=== PATIENT | male | born 1940 | race Caucasian/White ===

== ENCOUNTER 2021-11-24 11:56 | Inpatient (IN) | payer MEDICARE ==
[~2021-11-24] VITALS: Ht 182.9 cm; Wt 53.1 kg
[2021-11-24] MEDS ORDERED: normal saline 1000ml 1,000 ML IV ONE (13:45)
[2021-11-24] MEDS ORDERED: normal saline 1000ML IV soln IVB ONE (13:45)
[2021-11-24 13:48] LABS: BASOPHILS # (AUTO) 0.1 X10'3 (0-0.2); BASOPHILS % (AUTO) 0.8 % (0-1); EOSINOPHILS # (AUTO) 0.4 X10'3 (0-0.9); EOSINOPHILS % (AUTO) 4.2 % (0-6); HEMATOCRIT 40.1 % (42.0-52.0); HEMOGLOBIN 13.2 g/dl (14.0-17.9); LYMPHOCYTES # (AUTO) 0.8 X10'3 (1.1-4.8); LYMPHOCYTES % (AUTO) 8.3 % (21-51); MEAN CORPUSCULAR HEMOGLOBIN 30.1 PG (27.0-31.0); MEAN CORPUSCULAR HGB CONC 32.9 g/dL (33.0-36.5); MEAN CORPUSCULAR VOLUME 91.6 FL (78-98); MEAN PLATELET VOLUME 10.7 FL (7.4-10.4); MONOCYTES # (AUTO) 0.6 X10'3 (0-0.9); MONOCYTES % (AUTO) 6.8 % (2-12); NEUTROPHILS # (AUTO) 7.5 X10'3 (1.8-7.7); NEUTROPHILS % (AUTO) 79.9 % (42-75); PLATELET COUNT 165 X10'3 (140-440); RED BLOOD COUNT 4.38 X10'6 (4.70-6.10); RED CELL DISTRIBUTION WIDTH 16.6 % (11.5-14.5); WHITE BLOOD COUNT 9.4 X10'3 (4.5-11.0)
[2021-11-24] MEDS ORDERED: hyDRALAzine 10mg tablet PO SCH (13:50)
[2021-11-24] MEDS ORDERED: hyDRALAzine 10mg tablet PO ONE (13:50)
[2021-11-24 13:57] LABS: ALANINE AMINOTRANSFERASE 18 U/L (12-78); ALBUMIN 3.4 G/DL (3.4-5.0); ALBUMIN/GLOBULIN RATIO 0.9 (1.1-1.5); ALKALINE PHOSPHATASE 103 IU/L (46-116); ANION GAP 18 (8-16); ASPARTATE AMINO TRANSFERASE 19 U/L (10-37); BILIRUBIN,TOTAL 0.9 MG/DL (0.1-1.0); BLOOD UREA NITROGEN 30 MG/DL (7-18); BUN/CREATININE RATIO 8.6 (5.4-32.0); CALCIUM 9.3 MG/DL (8.5-10.1); CHLORIDE 101 MMOL/L (99-107); GLUCOSE 136 MG/DL (70-104); MAGNESIUM 2.2 MG/DL (1.5-2.4); POTASSIUM 3.7 MMOL/L (3.5-5.1); SODIUM 142 MMOL/L (135-145); TOTAL CARBON DIOXIDE 23.4 MMOL/L (24-32); eGFR 17 ML/MIN
[2021-11-24] MEDS: metoprolol tartrate 1mg/ml inj IV SCH ×3 (14:03→14:15)
[2021-11-24 14:23] LABS: CREATINE KINASE 132 U/L (39-308)
[2021-11-24] MEDS ORDERED: ondansetron 4mg rapidly disintigrating tab PO PRN (14:35)
[2021-11-24] MEDS ORDERED: magnesium Cl slow-release 64mg tablet PO PRN (14:35)
[2021-11-24] MEDS ORDERED: ondansetron/PF 4mg/2ml inj IV PRN (14:35)
[2021-11-24] MEDS ORDERED: magnesium 2GM in 50ml NS 50 ML IV PRN (14:35)
[2021-11-24] MEDS ORDERED: PERFLUTREN PROTEIN-A MICROSPHR (Optison) 0.22 MG/ML 3ML VIAL IV ONE (14:35)
[2021-11-24] MEDS ORDERED: acetaminophen 325mg tablet PO PRN (14:35)
[2021-11-24] MEDS ORDERED: potassium CL 10mEq/100ml bag 100 ML IV PRN (14:35)
[2021-11-24] MEDS ORDERED: magnesium 4gm in 100ml NS 100 ML IV PRN (14:35)
[2021-11-24] MEDS: normal saline 1000ml 1,000 ML IV SCH (14:35)
[2021-11-24] MEDS ORDERED: potassium Cl 20 mEq SR tablet PO PRN ×2 (14:35)
[2021-11-24 14:50] LABS: CLARITY,URINE CLEAR (Clear); GLUCOSE, URINE NEGATIVE (Neg); KETONES,URINE 15 mg/dl (Neg); LEUKOCYTE ESTERASE ,URINE NEGATIVE (Neg); NITRITES, URINE NEGATIVE (Neg); OCCULT BLOOD,URINE SMALL (Neg); PH,URINE 5.5 (4.8-8.0); PROTEIN,URINE 100 mg/dl (Neg); UROBILINOGEN,URINE 0.2 E.U/dL (0.2-1.0)
[2021-11-24 14:55] LABS: COLOR,URINE DARK YELLOW (Yellow); UA COLLECTION TYPE NON-SPECIFIED
[2021-11-24 14:56] LABS: BACTERIA,URINE FEW /HPF (Neg); COARSE GRANULAR CAST 0-3 /LPF (NEGATIVE); MUCUS STRANDS NONE SEEN /LPF (Neg); RBC,URINE 0-2 /HPF (0-2); SQUAMOUS EPITHELIAL CELL,UR FEW /LPF (FEW); WBC,URINE 0-4 /HPF (0-4)
[2021-11-24] MEDS ORDERED: ROSU40TA PO (16:09)
[2021-11-24] MEDS ORDERED: METO-384 PO (16:09)
[2021-11-24] MEDS: K and/or MAG REPLACEMENT MC SCH (19:06)
[2021-11-24] MEDS: docusate sod 100mg capsule PO SCH (20:00)
[2021-11-25] MEDS: normal saline 1000ml 1,000 ML IV SCH ×3 (00:35→20:35)
--- NOTE | 2021-11-25 01:12 | NUR ---
PT REFUSING VS AND ALL INTERACTIONS. PT REFUSES TO BE PUT ON A HOSPITAL BED. I EXPLAINED THAT HE WOULD BE MORE COMFORTABLE AND HE STATED THAT HE JUST WANTED TO BE LEFT ALONE. CHARGE AMANDA NOTIFIED.
--- NOTE | 2021-11-25 06:27 | NUR ---
Report received from LOUISE Rivera. Patient resting quietly, appears to be asleep; even chest rise and fall.
--- NOTE | 2021-11-25 07:35 | NUR ---
Patient resting quietly; given warm blanket. Patient denies needs at this time.
[2021-11-25] MEDS: K and/or MAG REPLACEMENT MC SCH ×2 (08:00→20:13)
[2021-11-25] MEDS: docusate sod 100mg capsule PO SCH ×2 (08:00→20:13)
[2021-11-25 08:02] LABS: BASOPHILS # (AUTO) 0.1 X10'3 (0-0.2); BASOPHILS % (AUTO) 0.9 % (0-1); EOSINOPHILS # (AUTO) 0.6 X10'3 (0-0.9); HEMATOCRIT 33.7 % (42.0-52.0); HEMOGLOBIN 11.3 g/dl (14.0-17.9); LYMPHOCYTES # (AUTO) 1.2 X10'3 (1.1-4.8); LYMPHOCYTES % (AUTO) 13.8 % (21-51); MEAN CORPUSCULAR HEMOGLOBIN 30.7 PG (27.0-31.0); MEAN CORPUSCULAR HGB CONC 33.4 g/dL (33.0-36.5); MEAN CORPUSCULAR VOLUME 91.9 FL (78-98); MEAN PLATELET VOLUME 11.1 FL (7.4-10.4); MONOCYTES # (AUTO) 0.6 X10'3 (0-0.9); NEUTROPHILS % (AUTO) 71.3 % (42-75); PLATELET COUNT 129 X10'3 (140-440); RED BLOOD COUNT 3.67 X10'6 (4.70-6.10); RED CELL DISTRIBUTION WIDTH 17.2 % (11.5-14.5); WHITE BLOOD COUNT 8.4 X10'3 (4.5-11.0)
[2021-11-25] MEDS: atorvastatin 20mg tablet PO SCH (08:19)
--- NOTE | 2021-11-25 08:20 | NUR ---
Patient given breakfast tray.
[2021-11-25] MEDS: metoprolol succinate 25mg (24-HOUR) SR. Tablet PO SCH (08:21)
[2021-11-25 08:53] LABS: ALBUMIN 2.7 G/DL (3.4-5.0); ANION GAP 14 (8-16); BLOOD UREA NITROGEN 34 MG/DL (7-18); BUN/CREATININE RATIO 10.9 (5.4-32.0); CALCIUM 8.5 MG/DL (8.5-10.1); CHLORIDE 107 MMOL/L (99-107); CREATININE 3.13 MG/DL (0.60-1.10); GLUCOSE 122 MG/DL (70-104); MAGNESIUM 2.3 MG/DL (1.5-2.4); POTASSIUM 3.2 MMOL/L (3.5-5.1); SODIUM 145 MMOL/L (135-145); TOTAL CARBON DIOXIDE 23.6 MMOL/L (24-32); eGFR 19 ML/MIN
--- NOTE | 2021-11-25 18:44 | NUR ---
assumed care of patient. patient eating dinner, no complaints of pain aox4. replaced PIV 20g RFA in 1 attempt. will reconnect to ivf and ctm
--- NOTE | 2021-11-25 22:47 | NUR ---
REPORT TO NURSE RIDDLE ON [facility]
--- NOTE | 2021-11-25 23:00 | NUR ---
received patient from ER ,transferred to bed safely. pt on room air , denies pain ,all belongings labeled, awaiting for security to pick patient wallet
[2021-11-25 23:32] VITALS: BP 168/82
[2021-11-26 02:00] VITALS: BP 158/78
[2021-11-26 05:38] LABS: BASOPHILS % (AUTO) 0.5 % (0-1); EOSINOPHILS # (AUTO) 0.4 X10'3 (0-0.9); EOSINOPHILS % (AUTO) 4.7 % (0-6); HEMATOCRIT 32.4 % (42.0-52.0); HEMOGLOBIN 10.8 g/dl (14.0-17.9); LYMPHOCYTES # (AUTO) 1.2 X10'3 (1.1-4.8); LYMPHOCYTES % (AUTO) 13.8 % (21-51); MEAN CORPUSCULAR HEMOGLOBIN 30.5 PG (27.0-31.0); MEAN CORPUSCULAR HGB CONC 33.3 g/dL (33.0-36.5); MEAN CORPUSCULAR VOLUME 91.6 FL (78-98); MEAN PLATELET VOLUME 11.7 FL (7.4-10.4); MONOCYTES # (AUTO) 0.6 X10'3 (0-0.9); MONOCYTES % (AUTO) 7.4 % (2-12); NEUTROPHILS # (AUTO) 6.4 X10'3 (1.8-7.7); NEUTROPHILS % (AUTO) 73.6 % (42-75); PLATELET COUNT 104 X10'3 (140-440); RED BLOOD COUNT 3.54 X10'6 (4.70-6.10); RED CELL DISTRIBUTION WIDTH 16.5 % (11.5-14.5); WHITE BLOOD COUNT 8.7 X10'3 (4.5-11.0)
[2021-11-26 05:51] LABS: ALBUMIN 2.4 G/DL (3.4-5.0); ANION GAP 9 (8-16); BLOOD UREA NITROGEN 39 MG/DL (7-18); BUN/CREATININE RATIO 11.6 (5.4-32.0); CALCIUM 8.2 MG/DL (8.5-10.1); CHLORIDE 107 MMOL/L (99-107); CREATININE 3.36 MG/DL (0.60-1.10); GLUCOSE 119 MG/DL (70-104); MAGNESIUM 1.9 MG/DL (1.5-2.4); SODIUM 140 MMOL/L (135-145); TOTAL CARBON DIOXIDE 23.8 MMOL/L (24-32); eGFR 18 ML/MIN
[2021-11-26 06:07] LABS: POTASSIUM 3.7 MMOL/L (3.5-5.1)
--- NOTE | 2021-11-26 06:35 | NUR ---
patient wallet picked up by administration placed in safe, patient given a copy of receipt , patient home medication taken to pharmacy, receipt placed in chart
--- NOTE | 2021-11-26 06:38 | NUR ---
report and plan of care reviewed with ismael GIL
[2021-11-26 07:00] VITALS: BP 140/100
--- NOTE | 2021-11-26 07:06 | NUR ---
Patient in room PCU 3028. I have received report from Louise GIL and had the opportunity to ask questions and assume patient care.
[2021-11-26 07:08] LABS: ANISOCYTOSIS 1+; BURR CELLS FEW; LARGE PLATELETS FEW; PLATELET ESTIMATE DECREASED
[2021-11-26] MEDS: K and/or MAG REPLACEMENT MC SCH ×2 (08:00→20:00)
[2021-11-26] MEDS: docusate sod 100mg capsule PO SCH ×2 (08:17→20:00)
[2021-11-26] MEDS: atorvastatin 20mg tablet PO SCH (08:17)
[2021-11-26] MEDS: metoprolol succinate 25mg (24-HOUR) SR. Tablet PO SCH (08:18)
[2021-11-26] MEDS: normal saline 1000ml 1,000 ML IV SCH ×4 (08:22→23:34)
[2021-11-26 11:00] VITALS: BP 126/75
--- NOTE | 2021-11-26 11:08 | NUR ---
Malnutrition consult: Pt admitted s/p fall w/ generalized weakness per EMR. No wt hx in EMR and current bed scale wt shows 53kg, pt does appear very thin though this may be his usual appearance. Pt states his appetite is good, observed that pt ate all of breakfast. Pt states that he has lost 18lb in the last week or so d/t a new diabetes medication that his doctor gave him, though no home DM meds listed in ED note. No edema noted. Pt likely chronically underweight as his appetite appears to be good. At this time, pt does not meet minimum criteria for malnutrition. Will continue to monitor. Addendum: 11/26/21 at [address] Amended: Links added.
[2021-11-26 15:00] VITALS: BP 156/75
[2021-11-26 18:00] VITALS: BP 158/90
[2021-11-26 18:03] LABS: CLARITY,URINE CLEAR (Clear); COLOR,URINE YELLOW (Yellow); GLUCOSE, URINE 100 mg/dl (Neg); KETONES,URINE NEGATIVE (Neg); LEUKOCYTE ESTERASE ,URINE NEGATIVE (Neg); NITRITES, URINE NEGATIVE (Neg); OCCULT BLOOD,URINE SMALL (Neg); PROTEIN,URINE 30 mg/dl (Neg); UROBILINOGEN,URINE 0.2 E.U/dL (0.2-1.0)
[2021-11-26 18:34] LABS: UA COLLECTION TYPE NON-SPECIFIED
[2021-11-26 18:35] LABS: BACTERIA,URINE NONE SEEN /HPF (Neg); RBC,URINE 0-2 /HPF (0-2); WBC,URINE 0-4 /HPF (0-4)
[2021-11-26 18:36] LABS: SQUAMOUS EPITHELIAL CELL,UR FEW /LPF (FEW)
[2021-11-26 18:39] LABS: TOTAL PROTEIN,URINE RANDOM 66.1 MG/DL
--- NOTE | 2021-11-26 18:43 | NUR ---
Problems reprioritized. Patient report given, questions answered & plan of care reviewed with Rosalio GIL.
[2021-11-26 19:28] LABS: UA EOSINOPHILS NO EOS /HPF
[2021-11-26 20:00] VITALS: BP 167/78
[2021-11-27] VITALS (8 sets, daily range): BP systolic 134–191; BP diastolic 61–87
[2021-11-27] MEDS: normal saline 1000ml 1,000 ML IV SCH ×5 (03:48→23:43)
[2021-11-27 06:37] LABS: BASOPHILS # (AUTO) 0.1 X10'3 (0-0.2); EOSINOPHILS # (AUTO) 0.4 X10'3 (0-0.9); NEUTROPHILS # (AUTO) 5.3 X10'3 (1.8-7.7)
[2021-11-27 06:39] LABS: BASOPHILS % (AUTO) 0.9 % (0-1); EOSINOPHILS % (AUTO) 5.5 % (0-6); HEMATOCRIT 30.2 % (42.0-52.0); HEMOGLOBIN 10.4 g/dl (14.0-17.9); LYMPHOCYTES % (AUTO) 14.1 % (21-51); MEAN CORPUSCULAR HEMOGLOBIN 31.4 PG (27.0-31.0); MEAN CORPUSCULAR HGB CONC 34.4 g/dL (33.0-36.5); MEAN CORPUSCULAR VOLUME 91.3 FL (78-98); MEAN PLATELET VOLUME 11.1 FL (7.4-10.4); MONOCYTES # (AUTO) 0.6 X10'3 (0-0.9); MONOCYTES % (AUTO) 7.6 % (2-12); NEUTROPHILS % (AUTO) 71.9 % (42-75); PLATELET COUNT 96 X10'3 (140-440); RED BLOOD COUNT 3.31 X10'6 (4.70-6.10); RED CELL DISTRIBUTION WIDTH 16.6 % (11.5-14.5); WHITE BLOOD COUNT 7.4 X10'3 (4.5-11.0)
[2021-11-27 06:45] LABS: ALBUMIN 2.3 G/DL (3.4-5.0); ANION GAP 11 (8-16); BLOOD UREA NITROGEN 45 MG/DL (7-18); BUN/CREATININE RATIO 15.7 (5.4-32.0); CALCIUM 7.6 MG/DL (8.5-10.1); CHLORIDE 108 MMOL/L (99-107); CREATININE 2.86 MG/DL (0.60-1.10); GLUCOSE 129 MG/DL (70-104); MAGNESIUM 1.7 MG/DL (1.5-2.4); POTASSIUM 4.2 MMOL/L (3.5-5.1); SODIUM 142 MMOL/L (135-145); TOTAL CARBON DIOXIDE 22.6 MMOL/L (24-32); eGFR 21 ML/MIN
--- NOTE | 2021-11-27 07:00 | NUR ---
Patient in room PCU 3023D. I have received report from LOUISE VILLAGOMEZ and had the opportunity to ask questions and assume patient care.
[2021-11-27] MEDS: K and/or MAG REPLACEMENT MC SCH ×2 (08:00→20:00)
[2021-11-27] MEDS ORDERED: amLODIPine 5mg tablet PO SCH (08:40)
[2021-11-27] MEDS: metoprolol succinate 25mg (24-HOUR) SR. Tablet PO SCH (09:16)
[2021-11-27] MEDS: atorvastatin 20mg tablet PO SCH (09:17)
[2021-11-27] MEDS: docusate sod 100mg capsule PO SCH ×2 (09:17→20:44)
[2021-11-27] MEDS: hyDRALAzine 10mg tablet PO SCH ×2 (16:00→23:42)
--- NOTE | 2021-11-27 18:08 | NUR ---
Problems reprioritized. Patient report given, questions answered & plan of care reviewed with LOUISE MEZA.
--- NOTE | 2021-11-27 18:43 | NUR ---
Problems reprioritized. Patient report given, questions answered & plan of care reviewed with LOUISE MARSHALL. Addendum: 11/27/21 at 1846 by Emily Tellez RN KAYLA SANTIAGO
[2021-11-28 02:00] VITALS: BP 160/73
[2021-11-28] MEDS: normal saline 1000ml 1,000 ML IV SCH ×3 (04:59→14:48)
[2021-11-28 06:00] VITALS: BP 127/79
--- NOTE | 2021-11-28 06:04 | NUR ---
Problems reprioritized. Patient report given, questions answered & plan of care reviewed with LOUISE Yarbrough.
--- NOTE | 2021-11-28 06:05 | NUR ---
Patient in room PCU 3028. I have received report from Rebeca GIL and had the opportunity to ask questions and assume patient care.
[2021-11-28 07:39] LABS: BASOPHILS # (AUTO) 0.1 X10'3 (0-0.2); BASOPHILS % (AUTO) 0.8 % (0-1); EOSINOPHILS # (AUTO) 0.5 X10'3 (0-0.9); HEMATOCRIT 32.3 % (42.0-52.0); HEMOGLOBIN 10.8 g/dl (14.0-17.9); LYMPHOCYTES # (AUTO) 1.3 X10'3 (1.1-4.8); LYMPHOCYTES % (AUTO) 13.7 % (21-51); MEAN CORPUSCULAR HEMOGLOBIN 31.1 PG (27.0-31.0); MEAN CORPUSCULAR HGB CONC 33.3 g/dL (33.0-36.5); MEAN CORPUSCULAR VOLUME 93.5 FL (78-98); MEAN PLATELET VOLUME 11.5 FL (7.4-10.4); MONOCYTES # (AUTO) 0.7 X10'3 (0-0.9); MONOCYTES % (AUTO) 7.8 % (2-12); NEUTROPHILS # (AUTO) 6.8 X10'3 (1.8-7.7); NEUTROPHILS % (AUTO) 72.7 % (42-75); PLATELET COUNT 105 X10'3 (140-440); RED BLOOD COUNT 3.46 X10'6 (4.70-6.10); RED CELL DISTRIBUTION WIDTH 17.5 % (11.5-14.5); WHITE BLOOD COUNT 9.3 X10'3 (4.5-11.0)
[2021-11-28] MEDS: K and/or MAG REPLACEMENT MC SCH (08:00)
[2021-11-28 08:19] LABS: LARGE PLATELETS MODERATE; PLATELET ESTIMATE DECREASED
[2021-11-28 08:20] LABS: BURR CELLS 1+; SCHISTOCYTES FEW
[2021-11-28] MEDS: docusate sod 100mg capsule PO SCH (08:38)
[2021-11-28] MEDS: atorvastatin 20mg tablet PO SCH (08:38)
[2021-11-28] MEDS: metoprolol succinate 25mg (24-HOUR) SR. Tablet PO SCH (08:41)
[2021-11-28] MEDS: hyDRALAzine 10mg tablet PO SCH (08:41)
[2021-11-28 09:05] LABS: ALBUMIN 2.3 G/DL (3.4-5.0); ANION GAP 15 (8-16); BLOOD UREA NITROGEN 46 MG/DL (7-18); BUN/CREATININE RATIO 17.9 (5.4-32.0); CALCIUM 7.9 MG/DL (8.5-10.1); CHLORIDE 112 MMOL/L (99-107); CREATININE 2.57 MG/DL (0.60-1.10); GLUCOSE 113 MG/DL (70-104); MAGNESIUM 1.7 MG/DL (1.5-2.4); SODIUM 144 MMOL/L (135-145); TOTAL CARBON DIOXIDE 17.3 MMOL/L (24-32); eGFR 24 ML/MIN
[2021-11-28 11:00] VITALS: BP 170/81
--- NOTE | 2021-11-28 15:40 | NUR ---
Pt transfered to [facility]. Report called to [facility] nurse, allowed her to ask questions concerning care and plan. Pt's IV removed, canula intact. Tele-box removed and returned to tele-tech. Pt's belongings gathered and sent with Pt. Pt's home meds were retrieved from pharmacy and given to Pt. Pt's belongings retrieved from [facility] and given to Pt. Pt wheeled down to lobby by [facility] personal and left in [facility] for [facility].
== END 2021-11-28 15:40 | DRG 682 ==
LOC: ER 11:57 → ED HOLD 14:36 → PCU 3S 11-25 22:50
PROVIDERS: ADMIT Internal Medicine; ATTEND Internal Medicine
PROC: CT131ZZ Planar Nuclear Medicine Imaging of Kidneys, Ureters and Bladder using Technetium 99m (Tc-99m) (ICD-10-PCS; principal; 2021-11-27)
DX: N17.0 Acute kidney failure with tubular necrosis (principal); E43 Unspecified severe protein-calorie malnutrition; M62.82 Rhabdomyolysis; Z68.1 Body mass index [BMI] 19.9 or less, adult; I16.0 Hypertensive urgency; E86.0 Dehydration; S80.02XA Contusion of left knee, initial encounter; S80.01XA Contusion of right knee, initial encounter; E78.5 Hyperlipidemia, unspecified; W18.39XA Other fall on same level, initial encounter; E87.6 Hypokalemia; I12.9 Hypertensive chronic kidney disease with stage 1 through stage 4 chronic kidney disease, or unspecified chronic kidney disease; N18.9 Chronic kidney disease, unspecified; Z79.899 Other long term (current) drug therapy; Z87.891 Personal history of nicotine dependence; Y93.89 Activity, other specified; Y92.098 Other place in other non-institutional residence as the place of occurrence of the external cause; Y99.8 Other external cause status
CPT/HCPCS: 36415; 70450; 71045; 72070; 72100; 78707; 80048; 80053; 81001; 82550; 82570; 83735; 83874; 83880; 84133; 84156; 84300; 84484; 85008; 85025; 87081; 87207; 93005; 93308; 96360; 97116; 97161; 97530; 99291; A9562; G0378; J3490; J7030